=== PATIENT | male | born 1965 | race Caucasian/White ===

== ENCOUNTER 2018-01-31 02:13 | Emergency (ER) | payer OTHER ==
--- NOTE | 2018-01-31 02:42 | PDOC ---
History of Present Illness <Mio Wood - Last Filed: 01/31/18 06:49> - History of Present Illness Initial Comments: 01/31/18 03:25 The patient is a 52 year old male with a history of HTN, GERD, Seizures who presents for evaluation following a seizure. The patient is accompanied by his who assists in providing the history. They note that the patient began having a tonic clonic seizure typical of his normal seizures prior to presentation to the ED. The patient fell and struck his head on the corner of a dresser sustaining a laceration to the back of his head. They note that the seizure lasted about 10 minutes which is longer than his seizures typically last. They note that his seizures are sporadic with his last one occurring 1 week ago. They note that he was recently started on Lamotragine in addition to his dilantin 1 week ago as well. He has not followed with a neurologist in a long time and his primary care provider manages his medications. He otherwise denies fevers, chills, neck pain, SOB, chest pain, nausea, vomiting, abdominal pain, sick contacts, or changes with urination or bowel movements, numbness, tingling, weakness. <Luca Jorge - Last Filed: 02/01/18 06:27> - General Chief Complaint: Seizure Stated Complaint: SEIZURE Time Seen by Provider: 01/31/18 02:41 Past History <Mio Wood - Last Filed: 01/31/18 06:49> - Past Medical History COPD: No Seizures: Yes - Suicide/Smoking/Psychosocial Hx Smoking Status: No Smoking History: Never smoked Number of Cigarettes Smoked Daily: 0 Hx Alcohol Use: No Drug/Substance Use Hx: No <Luca Jorge - Last Filed: 02/01/18 06:27> - Past Medical History Allergies/Adverse Reactions: Allergies Allergy/AdvReac Type Severity Reaction Status Date / Time No Known Allergies Allergy Verified 01/31/18 02:43 Home Medications: Ambulatory Orders Omeprazole [Prilosec (RX)] 40 mg PO DAILY 11/22/11 Phenytoin Na Extended [Dilantin] 100 mg PO TID 11/22/11 Albuterol 2.5/Ipratropium 0.5 [Duoneb -] 1 amp NEB DAILY 3 Days #3 amp 10/31/17 Azithromycin 500 mg PO DAILY 3 Days #3 tablet 10/31/17 Phenytoin Na Extended [Dilantin -] 200 mg PO BID 10/31/17 Review of Systems - Review of Systems Comments:: 01/31/18 03:29 Constitutional: No fevers, chills, fatigue, malaise HEENT: No Rhinorrhea, nasal congestion, visual changes Cardiovascular: No chest pain, syncope, palpitations, lightheadedness Respiratory: No Cough, SOB, Hemoptysis, Gastrointestinal: No Abdominal pain, Nausea, Vomiting, Constipation, Diarrhea, Melena Genitourinary: No Dysuria, Frequency, Urgency, Hesitancy, Hematuria, Flank pain Musculoskeletal: No Myalgia, arthralgia Skin: No rashes, itching, bruising, pallor Neurologic: Seizure, Headache. No Dizziness, Numbness, Weakness, or Tingling Psychiatric: No Hallucinations. No SI or HI <Luca Jorge - Last Filed: 02/01/18 06:27> *Physical Exam - Vital Signs Last Vital Signs Temp Pulse Resp BP Pulse Ox 98.4 F 105 H 16 159/96 96 01/31/18 02:13 01/31/18 02:13 01/31/18 02:13 01/31/18 02:13 01/31/18 02:13 <Mio Wood - Last Filed: 01/31/18 06:49> - Physical Exam Comments: 01/31/18 03:29 General Appearance: Nourished. No Apparent Distress HEENT: EOMI, EVANGELINA. 1cm laceration to the left posterior scalp. Bruising noted under the left eye. No Pharyngeal Erythema, Tonsillar Exudate, Tonsillar Erythema Neck: No Cervical Lymphadenopathy or C-spine Tenderness. Full ROM Respiratory/Chest: Lungs Clear, Normal Breath Sounds. No Crackles, Rales, Rhonchi, Wheezing Cardiovascular: Regular Rhythm, Regular Rate. No Murmur, Gallops, Rubs Gastrointestinal/Abdominal: Normal Bowel Sounds, Soft. No Guarding, Rebound, Tenderness Musculoskeletal: No CVA Tenderness Extremity: Normal Capillary Refill Integumentary: Normal Color, Dry, Warm Neurologic: financial administrative assistant II-XII NML intact, Fully Oriented, Alert, Normal Mood/Affect, Normal Response, Motor Strength 5/5. Normal Finger to Nose and Heel to Mims <Luca Jorge - Last Filed: 02/01/18 06:27> Moderate Sedation - Procedure Monitoring Vital Signs: Procedure Monitoring Vital Signs Temperature 98.4 F 01/31/18 02:13 Pulse Rate 105 H 01/31/18 02:13 Respiratory Rate 16 01/31/18 02:13 Blood Pressure 159/96 01/31/18 02:13 O2 Sat by Pulse Oximetry (%) 96 01/31/18 02:13 <IsraelMio - Last Filed: 01/31/18 06:49> Procedures - Laceration/Wound Repair Posterior Head Wound Length: to 2.5 cm Wound Explored: clean, no foreign body present Wound's Depth, Shape: superficial, linear Irrigated w/ Saline: Yes Wound Repaired With: Loa Number of Sutures: 2 Layer Closure: Yes Sterile Dressing Applied: Yes <Luca Jorge - Last Filed: 02/01/18 06:27> ED Treatment Course - LABORATORY CBC & Chemistry Diagram: 01/31/18 03:20 01/31/18 03:20 - ADDITIONAL ORDERS Additional order review: Laboratory Results 01/31/18 01/31/18 01/31/18 04:30 03:20 03:20 Sodium 137 Potassium 3.8 Chloride 102 Carbon Dioxide 23 Anion Gap 11 BUN 8 Creatinine 1.0 Creat Clearance w eGFR > 60 Random Glucose 169 H Calcium 8.4 L Total Bilirubin 0.3 AST 64 H ALT 84 H Alkaline Phosphatase 206 H Total Protein 7.1 Albumin 3.5 Urine Color Straw Urine Appearance Clear Urine pH 5.0 Ur Specific Bruce 1.012 Urine Protein 1+ H Urine Glucose (UA) Negative Urine Ketones Negative Urine Blood Negative Urine Nitrite Negative Urine Bilirubin Negative Urine Urobilinogen Negative Ur Leukocyte Esterase Negative Urine WBC (Auto) 1 Urine RBC (Auto) 1 Urine Bacteria Rare Urine Mucus Rare Phenytoin 3.5 L 01/31/18 03:20 RBC 5.76 H MCV 78.1 L MCHC 34.6 RDW 14.2 MPV 7.3 L Neutrophils % 71.0 D Lymphocytes % 20.0 Monocytes % 7.7 Eosinophils % 0.9 Basophils % 0.4 - Medications Given in the ED: ED Medications Discontinued Medications Generic Name Dose Route Start Last Admin Trade Name Freq PRN Reason Stop Dose Admin Acetaminophen 1,000 mg 01/31/18 03:29 01/31/18 04:13 Ofirmev Injection - IVPB 01/31/18 03:30 1,000 mg ONCE ONE Administration Sodium Chloride 1,000 mls @ 1,000 mls/hr 01/31/18 04:12 01/31/18 04:30 Normal Saline - IV 01/31/18 05:11 1,000 mls/hr ASDIR STA Administration Famotidine/Sodium Chloride 20 mg in 50 mls @ 100 mls/hr 01/31/18 04:48 05:57 Pepcid 20 Mg Premixed Ivpb - IVPB 01/31/18 05:17 100 mls/hr ONCE ONE Administration Phenytoin Sodium 100 mg 01/31/18 04:54 01/31/18 05:50 Dilantin Chewable Tablet - PO 01/31/18 04:55 100 mg ONCE ONE Administration <Mio Wood - Last Filed: 01/31/18 06:49> - LABORATORY CBC & Chemistry Diagram: 01/31/18 03:20 01/31/18 03:20 <Luca Jorge - Last Filed: 02/01/18 06:27> Medical Decision Making - Medical Decision Making 01/31/18 03:30 The patient is a 52 year old male with a history of HTN, GERD, Seizures who presents for evaluation following a seizure. Differential includes but is not limited to: Intracranial process, Seizure, Infections, Metabolic Derangement. Given the patient's recent medication change, it is possible his breakthrough seizure is related to the medication change. However, we will obtain a cbc, cmp , ua, lamotragine level, dilantin level, chest plain film, head ct, facial bone ct, c-spine ct to evaluate further. We will continue to monitor and reassess while here in the ED. 01/31/18 06:24 CBC, cmp, ua, are unremarkable. Chest plain film is unremarkable. Head ct, facial bone ct, c-spine ct were unremarkable as preliminarily read by our quality control tech raw materials radiologist. We will load the patient with dilantin here in the ED. The patient reports improvement in his symptoms and has remained asymptomatic throughout his stay in the ED. We are comfortable discharging the patient home with neurology and primary care provider follow up. We discussed the results, plan, and return precautions with the patient who voiced understanding and is agreeable with the plan. <Luca Jorge - Last Filed: 02/01/18 06:27> *DC/Admit/Observation/Transfer <Mio Wood - Last Filed: 01/31/18 06:49> <Luca Jorge - Last Filed: 02/01/18 06:27> Diagnosis at time of Disposition: Seizure - Discharge Dispostion Disposition: HOME Condition at time of disposition: Stable - Referrals Referrals: Sofía Dawn [Primary Care Provider] - Benny Rosado MD [Staff Physician] - - Patient Instructions Printed Discharge Instructions: DI for Seizure Disorder -- Adult Additional Instructions: Call your primary doctor TODAY to discuss having your seizure medications adjusted. Please return to the ER if you experience concerning or worsening symptoms including worsening difficulty breathing, weakness, or chest pain, numbness, tingling, weakness. Your lab results were normal here in the ER. Your CT scans were normal here in the ER. You had a laceration that was repaired with 2 bernarda that will need to be removed in 7 days. Please call to schedule a follow up appointment with your primary care provider and our Neurologist within 2-3 days to discuss your ER visit and further management of your symptoms. Your liver enzymes were slightly elevated today. Please ask your primary doctor to repeat these. - Post Discharge Activity
[2018-01-31 02:43] VITALS: BP 159/96; TEMP 98.4; BMI 31.3
[2018-01-31 03:29] LABS: BASO % 0.4 % (0-2.0); EOS % 0.9 % (0-4.5); HEMOGLOBIN 15.6 GM/dL (11.7-16.9); MCHC 34.6 g/dl (32.0-35.9); MEAN CELL VOLUME 78.1 fl (80-96); MEAN PLT VOLUME 7.3 fl (7.5-11.1); MONO % 7.7 % (3.8-10.2); PLATELET COUNT 398 K/MM3 (134-434); RBC 5.76 M/mm3 (4.00-5.60); RDW 14.2 % (11.9-15.9); WHITE BLOOD COUNT 12.9 K/mm3 (4.0-10.0)
[2018-01-31] MEDS ORDERED: ACETAMINOPHEN 1000 MG/100 ML VIAL (NON FORMULARY) IVPB ONE (03:29)
[2018-01-31] MEDS ORDERED: ACETAMINOPHEN INJECTION 100 ML IVPB ONE (03:37)
[2018-01-31 03:52] LABS: ALBUMIN 3.5 g/dl (3.4-5.0); ALK PHOS 206 U/L (45-117); ANION GAP 11 MMOL/L (8-16); BILIRUBIN,TOTAL 0.3 mg/dL (0.2-1); BLOOD UREA NITROGEN 8 mg/dL (7-18); CALCIUM 8.4 mg/dL (8.5-10.1); CHLORIDE 102 mmol/L (98-107); CO2 23 mmol/L (21-32); GLUCOSE,RANDOM 169 mg/dL (74-106); POTASSIUM 3.8 mmol/L (3.5-5.1); SGOT/AST 64 U/L (15-37); SGPT/ALT 84 U/L (13-61); SODIUM 137 mmol/L (136-145); TOT PROT 7.1 g/dl (6.4-8.2)
[2018-01-31] MEDS ORDERED: SODIUM CHLORIDE 1,000 ML IV STA (04:12)
--- NOTE | 2018-01-31 04:35 | PDOC ---
Attending Attestation - Resident Resident Name: Luca Jorge - ED Attending Attestation I have performed the following: I have examined & evaluated the patient, The case was reviewed & discussed with the resident, I agree w/resident's findings & plan, Exceptions are as noted - HPI HPI: 01/31/18 04:27 52 M with h/o HTN, GERD, Seizures on phenytoin and lamotrigine, presenting to ED with seizure x 1 today. Last seizure was about a week ago. notes generalized tonic-clonic seizure lasting approx 10 minutes, consistent with usual seizures. Pt now awake and alert in ED. Denies F/C. Denies any recent illness. No CP/SOB. No N/V/D/abdominal pain. Pt recently had his meds changed about 1 week ago after he had a breakthrough seizure. Pt was previously on phenytoin but was switched to lamictal, which he has been taking. However, last night pt took a dose of his phenytoin because he felt he was about to have a seizure. - Physicial Exam PE: 01/31/18 04:46 "GENERAL: Awake, alert, and fully oriented, in no acute distress. HEAD: 1cm lac to L occiput EYES: PERRLA, EOMI, sclera anicteric, conjunctiva clear ENT: Auricles normal inspection, hearing grossly normal, nares patent, oropharynx clear without exudates. Moist mucosa NECK: Nontender, no stepoffs, Normal ROM, supple, no lymphadenopathy, JVD, or masses LUNGS: Breath sounds equal, clear to auscultation bilaterally. No wheezes, and no crackles HEART: Regular rate and rhythm, normal S1 and S2, no murmurs, rubs or gallops ABDOMEN: Soft, nontender, normoactive bowel sounds. No guarding, no rebound. No masses EXTREMITIES: Normal range of motion, no edema. No clubbing or cyanosis. No cords, erythema, or tenderness NEUROLOGICAL: Cranial nerves II through XII intact. 5/5 strength and sensation in all extremities, Normal speech, normal gait, normal cerebellar function SKIN: Warm, Dry, normal turgor, no rashes or lesions noted. - Medical Decision Making 01/31/18 04:53 52 M with seizures presenting with breakthrough seizure. Likely 2/2 recent med change. Pt was previously on phenytoin, now on lamictal. Will evaluate for infectious/metabolic derangement. Check lamictal level. - Labs - CXR, UA - CT head - Lamictal level - Lac repair 01/31/18 06:47 CTs unremarkable Lac repaired CXR and UA normal Labs wnl Pt is well appearing, with normal vitals. Clinically stable for DC at this time. I discussed the physical exam findings, ancillary test results and final diagnoses with the patient. I answered all of the patient's questions. The patient was satisfied with the care received and felt comfortable with the discharge plan and treatment plan. The patient agrees to follow up with the primary care physician within 24-72 hours.
[2018-01-31] MEDS ORDERED: FAMOTIDINE 20 MG/50 ML IVPB 20 MG/50 ML MG IVPB ONE ×2 (04:48→05:56)
[2018-01-31] MEDS ORDERED: PHENYTOIN 50 MG TAB.CHEW PO ONE (04:54)
[2018-01-31 05:25] LABS: ANISOCYTOSIS 1+
[2018-01-31 05:26] LABS: URINE APPEARANCE CLEAR; URINE BILIRUBIN NEGATIVE (<2.0 mg/dL); URINE COLOR STRAW; URINE GLUCOSE (UA) NEGATIVE (NEGATIVE); URINE KETONE NEGATIVE (NEGATIVE); URINE LEUK ESTERASE NEGATIVE (NEGATIVE); URINE NITRITE NEGATIVE (NEGATIVE); URINE PROTEIN 1+ (NEGATIVE); URINE UROBILINOGEN NEGATIVE mg/dL (0.2-1.0)
[2018-01-31 05:26] LABS: PLATELET ESTIMATE ADEQUATE
[2018-01-31 05:34] LABS: URINE BACTERIA RARE /hpf (NONE SEEN); URINE MUCUS RARE
[2018-01-31 06:50] VITALS: PULSE 90
--- NOTE | 2018-01-31 16:25 | EKG ---
Test Reason : Blood Pressure : / mmHG Vent. Rate : 097 BPM Atrial Rate : 097 BPM P-R Int : 146 ms QRS Dur : 088 ms QT Int : 358 ms P-R-T Axes : 059 049 020 degrees QTc Int : 454 ms NORMAL SINUS RHYTHM NORMAL ECG Confirmed by MD DAINA, AIDEN ([id number]) on 01/31/2018 4:25:15 PM Referred By: Confirmed By:AIDEN LAMA MD
== END 2018-01-31 07:20 | disposition home or self-care (01) ==
LOC: JER 02:13
PROC: 0HQ0XZZ Repair Scalp Skin, External Approach (ICD-10-PCS; principal; 2018-01-31)
PROC: 3E033GC Introduction of Other Therapeutic Substance into Peripheral Vein, Percutaneous Approach (ICD-10-PCS; 2018-01-31)
PROC: 3E033NZ Introduction of Analgesics, Hypnotics, Sedatives into Peripheral Vein, Percutaneous Approach (ICD-10-PCS; 2018-01-31)
PROC: 3E0337Z Introduction of Electrolytic and Water Balance Substance into Peripheral Vein, Percutaneous Approach (ICD-10-PCS; 2018-01-31)
DX: S01.91XA Laceration without foreign body of unspecified part of head, initial encounter (principal); R56.9 Unspecified convulsions; I10 Essential (primary) hypertension; K21.9 Gastro-esophageal reflux disease without esophagitis
CPT/HCPCS: 36415; 70450-TC; 70486-TC; 71045-TC-FY; 72125-TC; 80053; 80175; 80185; 81003; 81015; 85025; 93005; 93010; 99282-25; J0131; J7030

== ENCOUNTER 2021-11-11 08:57 | Emergency (ER) | payer OTHER ==
[2021-11-11 09:03] VITALS: BP 163/87; PULSE 78; RESP 18; TEMP 98.2; BMI 31.0
[2021-11-11] MEDS ORDERED: ACETAMINOPHEN 325 MG TABLET (FP) PO ONE (09:57)
[2021-11-11] MEDS ORDERED: ONDANSETRON 4 MG/2 ML VIAL IVPUSH ONE (09:57)
[2021-11-11] MEDS ORDERED: FAMOTIDINE 20 MG/50 ML IVPB 20 MG/50 ML MG IVPB ONE ×2 (09:57→10:23)
[2021-11-11] MEDS ORDERED: lamoTRIgine 100 MG TABLET PO ONE (10:13)
[2021-11-11] MEDS ORDERED: ACETAMINOPHEN 325 MG TABLET (FP) ONE (10:25)
[2021-11-11] MEDS ORDERED: lamoTRIgine 100 MG TABLET ONE (10:26)
[2021-11-11] MEDS ORDERED: ONDANSETRON 4 MG/2 ML VIAL ONE (10:27)
[2021-11-11 10:47] LABS: BASO % 0.7 % (0-2.0); EOS % 0.4 % (0-4.5); HEMATOCRIT 47.4 % (35.4-49); HEMOGLOBIN 15.2 GM/dL (11.7-16.9); MCH 23.3 pg (25.7-33.7); MCHC 32.1 g/dl (32.0-35.9); MEAN CELL VOLUME 72.4 fl (80-96); MEAN PLT VOLUME 7.3 fl (7.5-11.1); MONO % 8.7 % (3.8-10.2); NEUT % 75.2 % (42.8-82.8); PLATELET COUNT 436 10^3/uL (134-434); RBC 6.54 M/mm3 (4.00-5.60); WHITE BLOOD COUNT 10.5 K/mm3 (4.0-10.0)
[2021-11-11 10:52] LABS: INR 1.18 (0.83-1.09); PROTHROMBIN TIME (PATIENT) 13.6 SEC (9.7-13.0)
[2021-11-11 11:11] LABS: CALCIUM 9.1 mg/dL (8.5-10.1)
[2021-11-11 11:12] LABS: ALBUMIN 3.8 g/dl (3.4-5.0); BLOOD UREA NITROGEN 6.1 mg/dL (7-18)
[2021-11-11 11:15] LABS: CREATININE 0.8 mg/dL (0.55-1.3)
[2021-11-11 11:16] LABS: TOT PROT 7.4 g/dl (6.4-8.2)
[2021-11-11 11:22] LABS: BILIRUBIN,TOTAL 0.4 mg/dL (0.2-1)
[2021-11-11] MEDS ORDERED: MAG HYDROX/AL HYDROX/SIMETH -MYLANTA- ORAL SUSPENSION PO ONE (12:57)
[2021-11-11] MEDS ORDERED: MAG HYDROX/AL HYDROX/SIMETH 30 ML UNIT-DOSE CUP ONE (13:21)
== END 2021-11-11 14:39 | disposition home or self-care (01) ==
LOC: JER 08:57
PROC: 3E033GC Introduction of Other Therapeutic Substance into Peripheral Vein, Percutaneous Approach (ICD-10-PCS; principal; 2021-11-11)
PROC: 3E033GC Introduction of Other Therapeutic Substance into Peripheral Vein, Percutaneous Approach (ICD-10-PCS; 2021-11-11)
DX: R10.13 Epigastric pain (principal); R07.9 Chest pain, unspecified
CPT/HCPCS: 36415; 71046-TC-FY; 76705-TC; 80053; 83690; 84484; 85025; 85610; 86850; 86900; 86901; 93005; 93010; 99285-25

== ENCOUNTER 2022-05-01 14:32 | Emergency (ER) | payer OTHER ==
[2022-05-01 14:51] VITALS: BP 172/92; PULSE 68; RESP 18; TEMP 99; BMI 32.3
[2022-05-01] MEDS ORDERED: FAMOTIDINE 20 MG/50 ML IVPB 20 MG/50 ML MG IVPB ONE ×2 (15:05→15:13)
[2022-05-01] MEDS ORDERED: ONDANSETRON 4 MG/2 ML VIAL IVPUSH ONE (15:05)
[2022-05-01] MEDS ORDERED: SODIUM CHLORIDE 500 ML IV STA (15:06)
[2022-05-01] MEDS ORDERED: ONDANSETRON 4 MG/2 ML VIAL ONE (15:13)
[2022-05-01 15:45] LABS: HEMATOCRIT 44.4 % (35.4-49); HEMOGLOBIN 14.7 G/dL (11.7-16.9); MCH 23.7 pg (25.7-33.7); MCHC 33.1 g/dl (32.0-35.9); MEAN CELL VOLUME 71.7 fl (80-96); MEAN PLT VOLUME 7.5 fl (7.5-11.1); PLATELET COUNT 374.2 10^3/uL (134-434); RBC 6.19 10^6/uL (4.00-5.60); RDW 18.7 % (11.9-15.9); WHITE BLOOD COUNT 9.7 10^3/uL (4.0-10.8)
[2022-05-01 15:51] LABS: ALBUMIN 3.9 g/dl (3.4-5.0); BILIRUBIN,TOTAL 0.4 mg/dl (0.2-1); CALCIUM 8.7 mg/dl (8.5-10); CREATININE 0.8 mg/dl (0.55-1.3); TOT PROT 6.9 g/dl (6.4-8.2)
[2022-05-01 17:31] LABS: ANISOCYTOSIS 1+; TARGET CELLS 1+
== END 2022-05-01 19:36 | disposition home or self-care (01) ==
LOC: FER 14:32
PROC: 3E033GC Introduction of Other Therapeutic Substance into Peripheral Vein, Percutaneous Approach (ICD-10-PCS; principal; 2022-05-01)
PROC: 3E033GC Introduction of Other Therapeutic Substance into Peripheral Vein, Percutaneous Approach (ICD-10-PCS; 2022-05-01)
PROC: 3E0337Z Introduction of Electrolytic and Water Balance Substance into Peripheral Vein, Percutaneous Approach (ICD-10-PCS; 2022-05-01)
DX: G40.89 Other seizures (principal); R11.0 Nausea; R10.84 Generalized abdominal pain; Z20.822 Contact with and (suspected) exposure to COVID-19
CPT/HCPCS: 0241U-QW; 36415; 74177-TC; 80053; 80175; 83690; 85027; 93005; 99285-25; Q9967

== ENCOUNTER 2022-08-18 21:59 | Emergency (ER) | payer OTHER ==
[2022-08-18 22:07] VITALS: TEMP 97.9; BMI 32.3
[2022-08-18] MEDS ORDERED: LACTATED RINGERS SOLUTION 1000 ML INFUS.BAG IV ONE (22:41)
[2022-08-18] MEDS ORDERED: FAMOTIDINE 10 MG TABLET PO ONE (22:41)
[2022-08-18] MEDS ORDERED: FAMOTIDINE 10 MG TABLET ONE (22:47)
[2022-08-18 22:58] LABS: BASO % 0.4 % (0-2.0); EOS % 0.7 % (0-4.5); HEMATOCRIT 42.5 % (35.4-49); HEMOGLOBIN 13.6 GM/dL (11.7-16.9); LYMPH % 13.4 % (8-40); MCH 22.4 pg (25.7-33.7); MCHC 31.9 g/dl (32.0-35.9); MEAN PLT VOLUME 7.1 fl (7.5-11.1); MONO % 8.5 % (3.8-10.2); PLATELET COUNT 390 10^3/uL (134-434); RBC 6.06 M/mm3 (4.00-5.60); RDW 17.1 % (11.9-15.9); WHITE BLOOD COUNT 14.4 K/mm3 (4.0-10.0)
[2022-08-18 23:17] LABS: POTASSIUM 3.8 mmol/L (3.5-5.1)
[2022-08-18 23:19] LABS: ALBUMIN 3.5 g/dl (3.4-5.0); CALCIUM 8.8 mg/dL (8.5-10.1)
[2022-08-18 23:20] LABS: BLOOD UREA NITROGEN 11.5 mg/dL (7-18)
[2022-08-18 23:22] LABS: CREATININE 1.1 mg/dL (0.55-1.3)
[2022-08-18 23:24] LABS: BILIRUBIN,TOTAL 0.4 mg/dL (0.2-1); TOT PROT 6.7 g/dl (6.4-8.2)
[2022-08-19 01:37] VITALS: BP 146/84; PULSE 78; RESP 18
== END 2022-08-19 01:38 | disposition home or self-care (01) ==
LOC: JER 21:59
DX: G40.909 Epilepsy, unspecified, not intractable, without status epilepticus (principal); R42 Dizziness and giddiness; R10.13 Epigastric pain
CPT/HCPCS: 36415; 76705-TC; 80053; 80175; 83690; 85025; 99284-25

== ENCOUNTER 2024-07-30 18:35 | Emergency (ER) | payer OTHER ==
[2024-07-30 18:58] VITALS: PULSE 61; TEMP 98; BMI 29.9
[2024-07-30 19:31] LABS: ABSOLUTE IMMATURE GRANULOCYTES 0.05 x10^3/uL (0.0-0.031); BASOPHILS # 0.05 x10^3/uL (0.01-0.08); EOSINOPHIL % 1.1 % (0.8-7.0); EOSINOPHILS # 0.12 x10^3/uL (0.04-0.54); HEMOGLOBIN 15.3 g/dL (13.7-17.5); MEAN CELL VOLUME 78.1 fl (79.0-92.2); MEAN PLT VOLUME 8.2 fl (9.4-12.4); MONOCYTE % 10.1 % (5.3-12.2); PLATELET COUNT 299 x10^3/uL (163-337); RDW 13.2 % (12.2-16.1)
[2024-07-30 19:53] LABS: POTASSIUM 3.9 mmol/L (3.5-5.1)
[2024-07-30 19:56] LABS: CALCIUM 8.9 mg/dL (8.5-10.1)
[2024-07-30 19:57] LABS: ALBUMIN 3.5 g/dl (3.4-5.0); BLOOD UREA NITROGEN 7.8 mg/dL (7-18)
[2024-07-30 20:00] LABS: CREATININE 0.6 mg/dL (0.55-1.3)
[2024-07-30 20:01] LABS: BILIRUBIN,TOTAL 0.2 mg/dL (0.2-1)
[2024-07-30 20:02] LABS: TOT PROT 6.5 g/dl (6.4-8.2)
[2024-07-30] MEDS ORDERED: DIPHTH,PERTUSS(ACELL),TET 0.5 ML DISP.SYRIN IM ONE (20:03)
[2024-07-30] MEDS: DIPHTH,PERTUSS(ACELL),TET 0.5 ML DISP.SYRIN IM ONE (20:10)
[2024-07-30] MEDS: LACTATED RINGERS SOLUTION 1000 ML INFUS.BAG IV ONE (20:10)
[2024-07-30] MEDS ORDERED: ACETAMINOPHEN 500 MG TABLET (FP) ONE (20:16)
[2024-07-30] MEDS: ACETAMINOPHEN 500 MG TABLET (FP) PO ONE (20:20)
[2024-07-30 20:47] LABS: HCV DIAGNOSTIC IN-HOUSE W/RFLX NON-REACTIVE (NONREACTIVE)
[2024-07-30 20:48] LABS: HIV INTERPRETATION NEGATIVE (NEGATIVE)
[2024-07-30] MEDS ORDERED: PHENYTOIN NA EXTENDED 100 MG CAPSULE (FP) ONE (20:53)
[2024-07-30] MEDS: PHENYTOIN NA EXTENDED 100 MG CAPSULE (FP) PO ONE (21:01)
[2024-07-30 21:05] LABS: PH,URINE 7.5 (5.0-8.0); URINE APPEARANCE CLEAR; URINE BILIRUBIN NEGATIVE (NEGATIVE); URINE COLOR YELLOW; URINE GLUCOSE (UA) NEGATIVE (NEGATIVE); URINE KETONE NEGATIVE (NEGATIVE); URINE LEUK ESTERASE NEGATIVE (NEGATIVE); URINE NITRITE NEGATIVE (NEGATIVE); URINE PROTEIN NEGATIVE (NEGATIVE); URINE UROBILINOGEN 0.2 mg/dL (0.2-1.0)
[2024-07-30 22:03] VITALS: BP 158/83; RESP 12
== END 2024-07-30 22:09 | disposition home or self-care (01) ==
LOC: JER 18:35
PROC: 3E0234Z Introduction of Serum, Toxoid and Vaccine into Muscle, Percutaneous Approach (ICD-10-PCS; principal; 2024-07-30)
DX: G40.909 Epilepsy, unspecified, not intractable, without status epilepticus (principal); R11.0 Nausea; R51.9 Headache, unspecified; R10.13 Epigastric pain
CPT/HCPCS: 36415; 70450-TC; 70486-TC; 71045-TC-FY; 72125-TC; 80053; 80186; 81003; 82962; 83690; 84484; 85025; 86803; 87086; 87389; 90471; 90715; 93005; 93010; 99285-25